=== PATIENT | female | born 1985 | race Caucasian/White ===

== ENCOUNTER 2018-04-17 11:48 | Emergency (ER) | payer MEDICAID ==
[~2018-04-17] VITALS: Ht 162.6 cm; Wt 62.0 kg
[~2018-04-17 11:48] MED LIST: HYDR-3965 PO; NO HOME MEDS; PENI500T2 PO
[2018-04-17 11:54] VITALS: BP 109/62
[2018-04-17] MEDS ORDERED: ketorolac trometh inj. 60 MG/2 ML VIAL IM ONE (12:15)
[2018-04-17] MEDS ORDERED: ACET1TAB12 PO (13:25)
== END 2018-04-17 13:36 | disposition home or self-care (01) ==
LOC: ER 11:49
DX: M25.551 Pain in right hip (principal); R10.2 Pelvic and perineal pain; F12.90 Cannabis use, unspecified, uncomplicated; Z88.5 Allergy status to narcotic agent; Z79.899 Other long term (current) drug therapy; W22.8XXA Striking against or struck by other objects, initial encounter; Y93.89 Activity, other specified; Y92.89 Other specified places as the place of occurrence of the external cause; Y99.8 Other external cause status
CPT/HCPCS: 73502; 96372; 99284; J1885

== ENCOUNTER 2018-12-08 09:04 | Emergency (ER) | payer MEDICAID ==
[~2018-12-08] VITALS: Ht 162.6 cm; Wt 70.5 kg
[~2018-12-08 09:04] MED LIST changes: +ACET1TAB12 PO
[2018-12-08 09:05] VITALS: BP 118/57
[2018-12-08] MEDS ORDERED: SULF1TAB49 PO (09:16)
[2018-12-08] MEDS ORDERED: sulfamethoxazole/trimethoprim DS (800/160mg) tablet PO ONE (09:20)
== END 2018-12-08 09:28 | disposition home or self-care (01) ==
LOC: ER 09:05
DX: T63.301A Toxic effect of unspecified spider venom, accidental (unintentional), initial encounter (principal); L03.115 Cellulitis of right lower limb; R07.89 Other chest pain; F17.200 Nicotine dependence, unspecified, uncomplicated; F12.90 Cannabis use, unspecified, uncomplicated; Z88.5 Allergy status to narcotic agent; Z79.899 Other long term (current) drug therapy; Y92.89 Other specified places as the place of occurrence of the external cause
CPT/HCPCS: 99283

== ENCOUNTER 2019-07-25 14:25 | Emergency (ER) | payer MEDICAID ==
[~2019-07-25] VITALS: Ht 162.6 cm; Wt 53.1 kg
[2019-07-25 14:43] VITALS: BP 117/68
== END 2019-07-25 16:28 | disposition home or self-care (01) ==
LOC: ER 14:26
DX: S60.211A Contusion of right wrist, initial encounter (principal); F12.90 Cannabis use, unspecified, uncomplicated; F17.200 Nicotine dependence, unspecified, uncomplicated; Z86.718 Personal history of other venous thrombosis and embolism; Z88.5 Allergy status to narcotic agent; X58.XXXA Exposure to other specified factors, initial encounter; Y93.89 Activity, other specified; Y92.89 Other specified places as the place of occurrence of the external cause; Y99.9 Unspecified external cause status
CPT/HCPCS: 71045; 93005; 99283